=== PATIENT | female | born 1970 | race Caucasian/White ===

== ENCOUNTER 2021-03-07 17:36 | Emergency (ER) | payer MEDICAID ==
[~2021-03-07] VITALS: Ht 167.6 cm; Wt 59.0 kg
[2021-03-07] MEDS ORDERED: keppra (17:49)
[2021-03-07] MEDS ORDERED: KEPP500 MT (18:22)
[2021-03-07] MEDS ORDERED: AM250 MT (18:22)
[2021-03-07 19:07] LABS: CHLORIDE 104 mEq/L (98-107)
[2021-03-07 19:15] LABS: CREATINE KINASE 39 IU/L (26-192)
[2021-03-07 19:45] VITALS: BP 128/82
== END 2021-03-07 20:08 | disposition home or self-care (01) ==
LOC: ER 17:36
DX: F45.9 Somatoform disorder, unspecified (principal)
CPT/HCPCS: 36415; 80048; 82550; 99283